=== PATIENT | female | born 1950 | race Caucasian/White ===

== ENCOUNTER 2024-10-11 20:00 | Outpatient (CLI) | payer MEDICARE, SELFPAY | END 2024-10-11 23:59 | disposition home or self-care (01) | LOC: LAB.DROPOF 10-12 10:41 | PROVIDERS: PCP Nurse Practitioner; Visit Provider Nurse Practitioner | DX: R35.0 Frequency of micturition (principal) | CPT/HCPCS: 87086; 87088; 87186 ==